=== PATIENT | male | born 1990 | race Caucasian/White ===

== ENCOUNTER 2016-12-16 10:49 | Emergency (ER) | payer SELFPAY ==
[~2016-12-16] VITALS: Ht 182.9 cm; Wt 106.8 kg
[2016-12-16 12:41] VITALS: BP 118/86
== END 2016-12-16 12:56 | disposition home or self-care (01) ==
LOC: EMS 10:51
DX: J20.9 Acute bronchitis, unspecified (principal); H66.91 Otitis media, unspecified, right ear
CPT/HCPCS: 99283